=== PATIENT | male | born 2000 | race Caucasian/White ===

== ENCOUNTER 2022-02-14 17:01 | Emergency (ER) | payer OTHER, SELFPAY ==
--- NOTE | 2022-02-14 17:03 | ECG_ITS ---
Measurements Intervals [place] Rate: 102 P: 56 [place]: 139 QRS: 8 QRSD: 88 T: -2 QT: 330 QTc: 432 Interpretive Statements SINUS TACHYCARDIA BORDERLINE T WAVE ABNORMALITY- INFERIOR LEADS BASELINE ARTIFACT- III, V1 BORDERLINE ECG NO PREVIOUS ECG AVAILABLE FOR COMPARISON Electronically Signed On 02-14-2022 22:56:40 BRAKE MACHINE OPERATOR by Sin Worley D.O.
[2022-02-14 17:10] VITALS: BP 165/79; PULSE 90; RESP 18; TEMP 36.9; O2SAT 100
--- NOTE | 2022-02-14 17:50 | PC.NURSE ---
pt was started on lexapro on 01/25. took it for 2 days then stopped due to feeling out of it . pt also admits he smokes alot of weed. pt also states that he quit taking adderall over break and has since restarted. pt c/o feeling anxious, having high heartrate. did go home and smoke weed after his therapy appointment today.
[2022-02-14] MEDS: LORazepam (*CRX) 0.5 MG TABLET PO (18:23)
--- NOTE | 2022-02-14 18:38 | ED.RECABL ---
HPI - Recheck/Abnormal Lab/Rx General Chief Complaint: Recheck/Abnormal Lab/Rx Stated Complaint: high heart rate Time Seen by Provider: 02/14/22 17:45 History of Present Illness HPI narrative: 21-year-old history of anxiety depression and ADHD presents to the emergency room for evaluation of chest pain, anxiety disassociative symptoms . Patient states that he has been on Lexapro since July to manage his anxiety. Patient states that he has increase his dose incrementally since. Patient states 3 weeks ago he was started on Wellbutrin, and he began experiencing confusion and mental fog. Was told at that time that he was probably experiencing a mild serotonin syndrome. Patient states he took the Wellbutrin for 2 days and then discontinued it. Patient also takes Adderall for his ADHD. Since taking the Wellbutrin, patient has been experiencing multiple panic attacks and was referred here from [facility] for further evaluation. Patient states today he began experiencing some chest discomfort and a heart rate in the 100s. Patient was concerned that he may be having a heart attack. Related Data Allergies Allergy/AdvReac Type Severity Reaction Status Date / Time No Known Allergies Allergy Verified 02/14/22 18:22 Review of Systems Review of Systems: CONSTITUTIONAL: Denies fever, chills, or sweats. EYES: Denies visual changes, redness, or discharge. ENT: Denies rhinorrhea, congestion, sore throat, or otalgia. CARDIOVASCULAR: Reports chest pain RESPIRATORY: Denies cough or dyspnea. GASTROINTESTINAL: Denies abdominal pain, nausea, vomiting, or diarrhea. GENITOURINARY: Denies dysuria or hematuria. SKIN: Denies rash or itching. MUSCULOSKELETAL: Denies back pain, joint pain, or myalgia. NEUROLOGIC: Denies headache, numbness, dizziness, or weakness. PSYCHIATRIC: Reports anxiety Exam Narrative: GENERAL: Well-appearing, well-nourished, no physical limitations, and in no acute distress. HEAD: Normocephalic, atraumatic. EYES: Conjunctivae normal, PERRLA and EOMI. CHEST: Clear to auscultation. No respiratory distress. No wheezes rales or rhonchi. No tenderness. HEART: Tachycardic and regular rhythm. No murmur heard. Normal peripheral pulses. ABDOMEN: Soft, nontender, nondistended, normal active bowel sounds. EXTREMITIES: Normal range of motion. No edema. No clubbing or cyanosis SKIN: Warm, dry, no rash. No noted wounds NEURO: No focal deficits. Alert and oriented x3. MAEW. CN's II-XI intact bilaterally, normal gait PSYCH: Cooperative. Anxious. Tangential. Unable to stay on topic Course Vital Signs Vital signs: Vital Signs Temperature 36.9 C 02/14/22 17:10 Pulse Rate 90 02/14/22 17:10 Respiratory Rate 18 02/14/22 17:10 Blood Pressure 165/79 H 02/14/22 17:10 Pulse Oximetry 100 02/14/22 17:10 Temperature 36.9 C 02/14/22 17:10 Pulse Rate 94 02/14/22 19:52 Respiratory Rate 18 02/14/22 19:52 Blood Pressure 146/92 H 02/14/22 19:52 Pulse Oximetry 97 02/14/22 19:52 MDM - Recheck/Abnormal Lab/Rx Lab Data Labs: Lab Results 02/14/22 Range/Units 18:27 Troponin I < 0.012 (0.000-0.034) ng/mL TSH 1.520 (0.465-4.680) uIU/mL Discharge Plan Discharge Clinical Impression: Anxiety Patient Disposition: Home, Self-Care Condition: Stable Instructions: Antibiotic Form, Anxiety (ED) Prescriptions: New lorazepam [Ativan] 1 mg tablet 1 mg PO BID PRN (Reason: anxiety) Qty: 30 0RF Follow-up/Referrals: PHYSICIAN NOT ON STAFF,NONSTAFF [Primary Care Provider] - Time of Disposition: 19:43
[2022-02-14 19:04] LABS: Troponin I < 0.012 ng/mL (0.000-0.034)
[2022-02-14 19:52] VITALS: BP 146/92; PULSE 94; RESP 18; O2SAT 97
== END 2022-02-14 19:54 | disposition home or self-care (01) ==
PROVIDERS: Emergency Provider Nurse Practitioner Family
DX: F41.9 Anxiety disorder, unspecified (principal); F32.A Depression, unspecified; F90.9 Attention-deficit hyperactivity disorder, unspecified type; R00.0 Tachycardia, unspecified; R94.31 Abnormal electrocardiogram [ECG] [EKG]
CPT/HCPCS: 36415; 84443; 84484; 93005; 99284; A9270

== ENCOUNTER 2022-02-23 13:16 | Emergency (ER) | payer OTHER, SELFPAY ==
[2022-02-23 13:43] VITALS: BP 144/90; PULSE 130; RESP 16; TEMP 36.4; O2SAT 98
[2022-02-23] MEDS: SODIUM CHLORIDE 0.9% IV 1,000 ML 999 ML IV CONT (16:06)
--- NOTE | 2022-02-23 16:18 | ED.GENADULT ---
HPI - General Adult General Chief complaint: Weakness Stated complaint: fatigue when walking Time Seen by Provider: 02/23/22 13:31 History of Present Illness HPI narrative: 21-year-old male presents to the emergency room for evaluation of a intermittent tachycardia over the past couple of weeks. Patient was seen here last week diagnosed with anxiety, was given a prescription for Ativan. Patient states that his anxiety and tachycardia were mostly resolved while taking the Ativan. States that over the weekend began experiencing some upper respiratory symptoms so he went to [facility] and was told to discontinue the Ativan and to start propranolol. Patient is also been complaining of nausea and has been unable to take the propranolol today. Related Data Home Medications Medication Instructions Recorded Confirmed escitalopram oxalate 20 mg tablet mg 02/23/22 02/23/22 Allergies Allergy/AdvReac Type Severity Reaction Status Date / Time No Known Allergies Allergy Verified 02/23/22 14:27 Review of Systems Review of Systems: CONSTITUTIONAL: Reports fatigue EYES: Denies visual changes, redness, or discharge. ENT: Denies rhinorrhea, congestion, sore throat, or otalgia. CARDIOVASCULAR: Reports palpitations, tachycardia RESPIRATORY: Denies cough or dyspnea. GASTROINTESTINAL: Denies abdominal pain, nausea, vomiting, or diarrhea. GENITOURINARY: Denies dysuria or hematuria. SKIN: Denies rash or itching. MUSCULOSKELETAL: Denies back pain, joint pain, or myalgia. NEUROLOGIC: Reports headache PSYCHIATRIC: Denies anxiety or depression. Exam Narrative: GENERAL: Well-appearing, well-nourished, no physical limitations, and in no acute distress. HEAD: Normocephalic, atraumatic. EYES: Conjunctivae normal, PERRLA and EOMI. swelling of upper eyelids bilaterally NECK: Supple. No meningeal signs. No adenopathy or masses. No carotid bruits or JVD CHEST: Clear to auscultation. No respiratory distress. No wheezes rales or rhonchi. No tenderness. HEART: Tachycardia with regular rhythm. No murmur heard. Normal peripheral pulses. ABDOMEN: Soft, nontender, nondistended, normal active bowel sounds. EXTREMITIES: Normal range of motion. No edema. No clubbing or cyanosis SKIN: Warm, dry, no rash. No noted wounds NEURO: No focal deficits. Alert and oriented x3. MAEW. CN's II-XI intact bilaterally, normal gait PSYCH: Cooperative. Normal mood and affect. Course Vital Signs Vital signs: Vital Signs Temperature 36.4 C L 02/23/22 13:43 Pulse Rate 130 H 02/23/22 13:43 Respiratory Rate 16 02/23/22 13:43 Blood Pressure 144/90 H 02/23/22 13:43 Pulse Oximetry 98 02/23/22 13:43 Oxygen Delivery Room Air 02/23/22 13:43 Temperature 36.4 C L 02/23/22 13:43 Pulse Rate 90 02/23/22 16:24 Respiratory Rate 16 02/23/22 13:43 Blood Pressure 144/90 H 02/23/22 13:43 Pulse Oximetry 98 02/23/22 13:43 Oxygen Delivery Room Air 02/23/22 13:43 Medical Decision Making Vital Signs Vital Signs: Vital Signs Temperature 36.4 C L 02/23/22 13:43 Pulse Rate 130 H 02/23/22 13:43 Respiratory Rate 16 02/23/22 13:43 Blood Pressure 144/90 H 02/23/22 13:43 Pulse Oximetry 98 02/23/22 13:43 Oxygen Delivery Room Air 02/23/22 13:43 Temperature 36.4 C L 02/23/22 13:43 Pulse Rate 90 02/23/22 16:24 Respiratory Rate 16 02/23/22 13:43 Blood Pressure 144/90 H 02/23/22 13:43 Pulse Oximetry 98 02/23/22 13:43 Oxygen Delivery Room Air 02/23/22 13:43 Lab Data 02/23/22 16:55 02/23/22 16:55 Labs: Lab Results 02/23/22 02/23/22 02/23/22 Range/Units 16:46 16:55 16:55 WBC 10.3 H (4.5-10.0) K/mm3 RBC 6.01 (4.6-6.20) M/mm3 Hgb 16.6 (14.0-18.0) g/dL Hct 53.2 H (42.0-52.0) % MCV 88.5 (80-100) fl MCH 27.6 (26-34) pg MCHC 31.2 L (32-36) g/dl RDW 15.5 H (11.5-14.5) % Plt Count 244 (150-375) k/mm3 MPV 9.0 (7.4-10.4) fl Im
[2022-02-23 16:24] VITALS: PULSE 90
[2022-02-23] MEDS: PROPRANOLOL HCL 20 MG TABLET PO (16:24)
[2022-02-23 17:04] LABS: Basophils Absolute Auto 0.1 K/mm3 (0.0-0.1); Basophils Percent Auto 0.8 % (0.2-1.2); Eosinophils Absolute Auto 0.3 K/mm3 (0-0.3); Hematocrit 53.2 % (42.0-52.0); Hemoglobin 16.6 g/dL (14.0-18.0); Lymphocytes Absolute Auto 2.35 K/mm3 (0.9-3.2); Lymphocytes Percent Auto 22.7 % (18.3-44.2); Mean Corpuscular HGB Conc 31.2 g/dl (32-36); Mean Corpuscular Hemoglobin 27.6 pg (26-34); Mean Corpuscular Volume 88.5 fl (80-100); Monocytes Absolute Auto 1.1 K/mm3 (0.1-0.6); Monocytes Percent Auto 10.6 % (2.6-8.5); Neutrophils Absolute Auto 6.4 K/mm3 (1.3-6.7); Neutrophils Percent Auto 61.9 % (45.5-73.1); Platelet Count Result 244 k/mm3 (150-375); Red Blood Count 6.01 M/mm3 (4.6-6.20); Red Cell Distribution Width 15.5 % (11.5-14.5); White Blood Count 10.3 K/mm3 (4.5-10.0)
[2022-02-23 17:21] LABS: Anion Gap 8 mmol/L (8-16); Blood Urea Nitrogen 12 mg/dL (8-21); Calcium 8.2 mg/dL (8.9-10.7); Carbon Dioxide 25 mmol/L (22-30); Chloride 101 mmol/L (98-107); Estimated CRCL calculation 203 ml/min; Estimated Glomerular Filt Rate > 60; Glucose 82 mg/dL (65-110); Potassium 3.9 mmol/L (3.4-5.0); Sodium 134 mmol/L (134-143)
[2022-02-23 17:40] LABS: Influenza A QL RT-PCR Negative (Negative); Influenza B QL RT-PCR Negative (Negative); RSV RNA, RT-PCR Negative (Negative); SARS-CoV-2 RNA PCR Negative
[2022-02-23 18:04] VITALS: PULSE 81; RESP 18; O2SAT 98
== END 2022-02-23 18:14 | disposition home or self-care (01) ==
PROVIDERS: Emergency Provider Nurse Practitioner Family
DX: R00.0 Tachycardia, unspecified (principal); R53.83 Other fatigue; R11.0 Nausea; Z20.822 Contact with and (suspected) exposure to COVID-19; F41.9 Anxiety disorder, unspecified
CPT/HCPCS: 36415; 80048; 85025; 87637; 96360; 99283; A9270; J7030

== ENCOUNTER 2023-04-02 22:36 | Emergency (ER) | payer OTHER, SELFPAY ==
--- NOTE | ~2023-04-02 | XR_ITS ---
EXAMINATION: XR ankle LT min 3V DATE: 04/02/2023 23:17 INDICATION: Left ankle pain TECHNIQUE: Three views of the left ankle are obtained.. COMPARISON: None. FINDINGS: There is an acute, traumatic, closed, oblique fracture of the distal fibula extending to th e level of the tibial plafond. There are 4 mm of lateral subluxation of the talus with respect to the distal tibia. There is widening of the medial tibiotalar space. There is soft tissue swelling of ank le. IMPRESSION: 1. Oblique fracture of the distal fibula with 4 mm of lateral subluxation of the talus with respect t o the distal tibia. Reviewed, dictated and finalized at location F. TE MANAGER IMPRESSION: 1. Oblique fracture of the distal fibula with 4 mm of lateral subluxation of th e talus with respect to the distal tibia.
--- NOTE | ~2023-04-02 | XR_ITS ---
Right foot Technique: AP, oblique, and lateral views were obtained. Clinical History: Pain Findings: No acute fracture or dislocation is seen. Osseous alignment is anatomic. Joint spaces are p reserved without erosive or degenerative change. Soft tissues are unremarkable. Impression: Unremarkable right foot radiographs. Reviewed, dictated and finalized at location . DESIGNER Impression: Unremarkable right foot radiographs.
[2023-04-02 22:39] VITALS: BP 144/92; PULSE 114; RESP 20; TEMP 36.7; O2SAT 98
[2023-04-02 23:42] VITALS: BP 154/76; PULSE 90; RESP 18; TEMP 36.4; O2SAT 98
[2023-04-03] MEDS: KETOROLAC (*BKC) 60 MG/2 ML VIAL IM (00:07)
[2023-04-03] MEDS: HYDROcodone/acetaminophen (*CRX) 5-325 MG TABLET 1 TAB PO (00:07)
--- NOTE | 2023-04-03 00:23 | ED.LOWEXIN ---
HPI - Extremity Injury (Lower) General Chief Complaint: Extremity Injury, Lower Stated Complaint: injured LEFT ankle Time Seen by Provider: 04/02/23 23:45 Source: patient Mode of arrival: ambulatory Limitations: no limitations History of Present Illness HPI Narrative: Patient is a 22 y/o male who presents to the ED with c/o left ankle pain. Patient reports he was walking to his laundry today when he slipped on ice carrying his laundry basket. He rolled his left ankle in the process. He complains of pain to his left lateral ankle. Difficulty ambulating due to the pain. Denies any other injuries. Denies head injury or LOC. Denies knee pain. No significant numbness. He has not taken anything for pain prior to arrival. Related Data Home Medications Medication Instructions Recorded Confirmed escitalopram oxalate 20 mg tablet mg 02/23/22 02/23/22 Allergies Allergy/AdvReac Type Severity Reaction Status Date / Time No Known Allergies Allergy Verified 02/23/22 14:27 Review of Systems Review of Systems: CONSTITUTIONAL: Denies fever, chills, or sweats. MUSCULOSKELETAL: See HPI. NEUROLOGIC: Denies headache, dizziness, numbness, or weakness. All systems reviewed & are unremarkable except as noted in HPI and below Exam Narrative: GENERAL: Well appearing, morbidly obese with BMI of 43.0, non-toxic, in no acute distress. HEAD: Normocephalic, atraumatic. RESPIRATORY: Airway patent, respirations nonlabored. CARDIOVASCULAR: Regular rate and rhythm. Pedal pulses 2+ MUSCULOSKELETAL: Limited range of motion of left ankle due to pain. Moderate swelling to lateral malleolus with diffuse tenderness. Mild tenderness over dorsal midfoot. Sensation intact. Capillary refill intact. No pain throughout left knee or more proximal lower leg. SKIN: Warm, dry, normal color. NEURO: A&O X3. Speech clear. Cranial nerves II-XII grossly intact. No ataxic movements. PSYCHIATRIC: Appropriate mood and affect. Normal interaction. Course Vital Signs Vital signs: Vital Signs Temperature 98.0 F 04/02/23 22:39 Pulse Rate 114 H 04/02/23 22:39 Respiratory Rate 20 04/02/23 22:39 Blood Pressure 144/92 H 04/02/23 22:39 Pulse Oximetry 98 04/02/23 22:39 Oxygen Delivery Room Air 04/02/23 22:39 Temperature 97.6 F 04/02/23 23:42 Pulse Rate 90 04/02/23 23:42 Respiratory Rate 18 04/02/23 23:42 Blood Pressure 154/76 H 04/02/23 23:42 Pulse Oximetry 98 04/02/23 23:42 Oxygen Delivery Room Air 04/02/23 22:39 MDM - Extremity Injury (Lower) MDM Narrative Medical decision making narrative: Patient's injury is consistent with musculoskeletal etiology. No signs of neurologic or vascular compromise on physical examination. Compartments are soft without signs of compartment syndrome. XR left ankle showing distal fibular fracture with lateral subluxation of the talus. No dislocation. Patient did also have some tenderness throughout his mid foot. X-ray of left foot interpreted by myself without any additional fractures. Pain is consistent with exam and injury. Patient placed in a short-leg posterior splint. Patient is originally from [facility] and plans to follow-up with an clinical specialist medical device there. Advised to wear splint and utilize crutches until seen by Orthopedics, pain medication sent to pharmacy. Patient given return precautions. D/C stable condition. Medical Records Attestation: I reviewed the patient's medical records. Imaging Data Attestation: I personally reviewed and interpreted this imaging study as follows: My impression: XR L foot: No acute osseous abnormality. Radiologist's impression: ITS Impressions Ankle X-Ray 04/02/23 23:23 IMPRESSION: 1. Oblique fracture of the distal fibula with 4 mm of lateral subluxation of the talus with respect to the distal tibia. Discharge Plan Discharge Clinical Impression: Fracture of distal end of left fibula, Fall
[2023-04-03 01:13] VITALS: BP 154/72; PULSE 75; RESP 16; TEMP 36.8; O2SAT 99
== END 2023-04-03 01:14 | disposition home or self-care (01) ==
LOC: ANHED 04-03 00:45
PROVIDERS: Emergency Provider Physician Assistant
DX: S82.832A Other fracture of upper and lower end of left fibula, initial encounter for closed fracture (principal); X50.9XXA Other and unspecified overexertion or strenuous movements or postures, initial encounter
CPT/HCPCS: 29515; 73610; 73630; 96372; 99284; A9270; J1885

== ENCOUNTER → 2023-06-02 15:18 | Emergency (ER) | payer OTHER, SELFPAY | END | disposition left against medical advice (07) | LOC: ANHED 15:52 | DX: Z53.21 Procedure and treatment not carried out due to patient leaving prior to being seen by health care provider (principal) | CPT/HCPCS: 99199 ==

== ENCOUNTER 2023-06-03 18:37 | Emergency (ER) | payer OTHER, SELFPAY ==
[2023-06-03] VITALS (7 sets, daily range): BP systolic 103–158; BP diastolic 73–108; PULSE 72–98; RESP 20–24; TEMP 36.8; O2SAT 99–100
--- NOTE | ~2023-06-03 | CT_ITS ---
EXAMINATION: CT brain wo con DATE: 06/03/2023 20:16 INDICATION: dizziness . TECHNIQUE: Computed tomography (CT) of the head was performed without intravenous contrast. The mA wa s adjusted according to patient size. Iterative reconstruction technique was employed. The dose-lengt h product was 681.00 mGy-cm. COMPARISON: None. FINDINGS: No acute intracranial hemorrhage or extra-axial fluid collection. No hydrocephalus, mass, or herniation. No acute ischemic infarct. Unremarkable dural venous sinus attenuation. No acute osseous abnormality. The aerated spaces are clear. IMPRESSION: No acute intracranial process. Reviewed, dictated and finalized at location K.
--- NOTE | ~2023-06-03 | XR_ITS ---
EXAMINATION: XR chest 1V portable Exam Date/Time: 06/03/2023 19:40 CDT HISTORY: near syncope Comparison: None. RESULT: Lines, tubes, and devices: None. Lungs and pleura: Clear. Cardiomediastinal silhouette: Normal. Other: No acute osseous or upper abdominal finding. IMPRESSION: No acute cardiopulmonary process. Reviewed, dictated and finalized at location K.
--- NOTE | 2023-06-03 18:42 | ECG_ITS ---
Measurements Intervals [place] Rate: 83 P: 26 [place]: 136 QRS: 3 QRSD: 96 T: 9 QT: 350 QTc: 412 Interpretive Statements SINUS RHYTHM VOLTAGE CRITERIA FOR LVH BASELINE WANDER- II, III, AVF, V1-V2, V4-V6 BORDERLINE ECG COMPARED TO ECG 02/14/2022 17:06:48 SINUS RHYTHM NOW PRESENT LEFT VENTRICULAR HYPERTROPHY NOW PRESENT Electronically Signed On 06-04-2023 9:02:08 CDT by Sin Worley D.O.
--- NOTE | 2023-06-03 19:31 | ED.GENADULT ---
HPI - General Adult General Chief complaint: Dizziness Stated complaint: light headed, dizziness, panic attack Time Seen by Provider: 06/03/23 19:01 History of Present Illness HPI narrative: Patient is a 22-year-old gentleman who presents emergency department with chief complaint of lightheadedness feeling like he is going to pass out and tingling over his body. The patient reports he has tingling in his hands lips and feet patient states that he does have history of anxiety and has been seeing his primary care provider patient states he has had several episodes recent felt as though he was going to pass out but has not actually passed out Related Data Home Medications Medication Instructions Recorded Confirmed escitalopram oxalate 20 mg tablet mg 02/23/22 02/23/22 Allergies Allergy/AdvReac Type Severity Reaction Status Date / Time No Known Allergies Allergy Verified 02/23/22 14:27 Review of Systems Review of Systems: A 10 system review of systems was completed on the patient and is negative except for what is stated in the HPI. Nursing and ancillary documentation was reviewed. Exam Narrative: GENERAL: Well-appearing, well-nourished, and in no acute distress. HEAD: Normocephalic, atraumatic. EYES: PERRLA and EOMI. ENT: Nares clear, no rhinorrhea or epistaxis. Mucous membranes moist. NECK: Supple. CHEST: Clear to auscultation. No respiratory distress. HEART: Regular rate and rhythm. No murmur heard. Normal peripheral pulses. ABDOMEN: Soft, nontender, nondistended, normal active bowel sounds. EXTREMITIES: Normal range of motion. No edema. SKIN: Warm, dry, no rash. NEURO: No focal deficits. Alert and oriented x3. PSYCH: Normal mood and affect. Course Vital Signs Vital signs: Vital Signs Temperature 36.8 C 06/03/23 18:44 Pulse Rate 98 06/03/23 18:44 Respiratory Rate 20 06/03/23 18:44 Blood Pressure 158/100 H 06/03/23 18:44 Pulse Oximetry 100 06/03/23 18:44 Temperature 36.8 C 06/03/23 18:44 Pulse Rate 72 06/03/23 21:34 Respiratory Rate 24 H 06/03/23 21:34 Blood Pressure 148/79 H 06/03/23 21:34 Pulse Oximetry 99 06/03/23 21:34 Medical Decision Making MDM Narrative Medical decision making narrative: Differential diagnosis includes electrolyte abnormality, anxiety, dysrhythmia anemia, infection EKG showed no acute ischemic changes and no dysrhythmia Laboratory studies were obtained on the patient showed a white count of 10.3 electrolytes showed a CO2 of 17 creatinine 0.6 troponin is less than 0.012 magnesium was 1.[address] showed no acute abnormalities Chest x-ray showed no acute findings EKG showed no acute ischemic changes Patient was given supplemental magnesium in the emergency department Vital Signs Vital Signs: Vital Signs Temperature 36.8 C 06/03/23 18:44 Pulse Rate 98 06/03/23 18:44 Respiratory Rate 20 06/03/23 18:44 Blood Pressure 158/100 H 06/03/23 18:44 Pulse Oximetry 100 06/03/23 18:44 Temperature 36.8 C 06/03/23 18:44 Pulse Rate 72 06/03/23 21:34 Respiratory Rate 24 H 06/03/23 21:34 Blood Pressure 148/79 H 06/03/23 21:34 Pulse Oximetry 99 06/03/23 21:34 Lab Data 06/03/23 19:19 06/03/23 19:19 Labs: Lab Results 06/03/23 06/03/23 Range/Units 19:19 19:36 WBC 10.3 H (4.5-10.0) K/mm3 RBC 5.42 (4.6-6.20) M/mm3 Hgb 15.0 (14.0-18.0) g/dL Hct 47.5 (42.0-52.0) % MCV 87.6 (80-100) fl MCH 27.7 (26-34) pg MCHC 31.6 L (32-36) g/dl RDW 13.6 (11.5-14.5) % Plt Count 304 (150-375) k/mm3 MPV 9.4 (7.4-10.4) fl Immature Gran % (Auto) 0.3 (0-0.5) % Neut % (Auto) 66.9 (45.5-73.1) % Lymph % (Auto) 22.3 (18.3-44.2) % [place] % (Auto) 8.5 (2.6-8.5) % Eos % (Auto) 1.1 (0-4.4) % Baso % (Auto) 0.9 (0.2-1.2) % Lymph # (Auto) 2.30 (0.9-3.2) K/mm3 [place] # (Auto) 0.9 H (0.1-0.6) K/mm3 Eos # (Auto) 0.1 (
[2023-06-03 19:35] LABS: Basophils Absolute Auto 0.1 K/mm3 (0.0-0.1); Basophils Percent Auto 0.9 % (0.2-1.2); Eosinophils Absolute Auto 0.1 K/mm3 (0-0.3); Eosinophils Percent Auto 1.1 % (0-4.4); Hematocrit 47.5 % (42.0-52.0); Immature Granulocyte Absolute 0.03 K/mm3 (0.00-0.031); Immature Granulocyte Percent A 0.3 % (0-0.5); Lymphocytes Percent Auto 22.3 % (18.3-44.2); Mean Corpuscular HGB Conc 31.6 g/dl (32-36); Mean Corpuscular Hemoglobin 27.7 pg (26-34); Mean Corpuscular Volume 87.6 fl (80-100); Mean Platelet Volume 9.4 fl (7.4-10.4); Monocytes Absolute Auto 0.9 K/mm3 (0.1-0.6); Monocytes Percent Auto 8.5 % (2.6-8.5); Neutrophils Absolute Auto 6.9 K/mm3 (1.3-6.7); Neutrophils Percent Auto 66.9 % (45.5-73.1); Platelet Count Result 304 k/mm3 (150-375); Red Blood Count 5.42 M/mm3 (4.6-6.20); Red Cell Distribution Width 13.6 % (11.5-14.5); White Blood Count 10.3 K/mm3 (4.5-10.0)
[2023-06-03] MEDS: SODIUM CHLORIDE 0.9% IV 1,000 ML 999 ML IV CONT (19:37)
[2023-06-03 19:53] LABS: Alanine Aminotransferase 37 U/L (6-50); Albumin Level 4.8 g/dL (3.5-5.1); Alkaline Phosphatase 115 U/L (38-126); Anion Gap 13 mmol/L (8-16); Aspartate Amino Transferase 32 U/L (17-59); Bilirubin,Total 0.5 mg/dL (0.2-1.3); Blood Urea Nitrogen 9 mg/dL (9-20); Calcium 10.2 mg/dL (8.4-10.2); Carbon Dioxide 17 mmol/L (22-30); Chloride 110 mmol/L (98-107); Estimated CRCL calculation 245 ml/min; Estimated Glomerular Filt Rate > 60; Glucose 95 mg/dL (65-110); Potassium 3.4 mmol/L (3.4-5.0); Sodium 140 mmol/L (137-145)
[2023-06-03 19:56] LABS: Magnesium 1.8 mg/dL (1.6-2.3)
[2023-06-03 20:09] LABS: Troponin I < 0.012 ng/mL (0.000-0.034)
[2023-06-03] MEDS: MAGNESIUM SULF 1 GM/D5W 100 ML 1 GM/100 ML BAG IVPB (20:35)
== END 2023-06-03 22:00 | disposition home or self-care (01) ==
PROVIDERS: Student in an Organized Health Care Education/Training Program; Emergency Provider Emergency Medicine
DX: R42 Dizziness and giddiness (principal); F41.9 Anxiety disorder, unspecified; R94.31 Abnormal electrocardiogram [ECG] [EKG]
CPT/HCPCS: 36415; 70450; 71045; 80053; 83735; 84484; 85025; 93005; 96361; 96365; 99284; J3475; J7030

== ENCOUNTER 2023-06-05 16:57 | Emergency (ER) | payer OTHER, SELFPAY ==
[2023-06-05] VITALS (24 sets, daily range): BP systolic 139–165; BP diastolic 74–113; PULSE 70–108; RESP 13–25; TEMP 36.6; O2SAT 96–100
--- NOTE | 2023-06-05 19:20 | ECG_ITS ---
Measurements Intervals [place] Rate: 77 P: 23 [place]: 148 QRS: 7 QRSD: 93 T: 8 QT: 359 QTc: 409 Interpretive Statements SINUS RHYTHM WITH SINUS ARRHYTHMIA VOLTAGE CRITERIA FOR LVH BASELINE ARTIFACT- I, III, AVL, V1-V2 BORDERLINE ECG COMPARED TO ECG 06/03/2023 19:00:17 SINUS ARRHYTHMIA NOW PRESENT Electronically Signed On 06-06-2023 6:24:05 CDT by Sin Worley D.O.
[2023-06-05] MEDS: SODIUM CHLORIDE 0.9% IV 1,000 ML 999 ML IV CONT ×2 (19:52→21:02)
[2023-06-05 20:03] LABS: Basophils Absolute Auto 0.1 K/mm3 (0.0-0.1); Basophils Percent Auto 0.8 % (0.2-1.2); Eosinophils Absolute Auto 0.1 K/mm3 (0-0.3); Eosinophils Percent Auto 1.1 % (0-4.4); Hematocrit 46.7 % (42.0-52.0); Hemoglobin 15.2 g/dL (14.0-18.0); Immature Granulocyte Absolute 0.03 K/mm3 (0.00-0.031); Immature Granulocyte Percent A 0.3 % (0-0.5); Lymphocytes Absolute Auto 2.19 K/mm3 (0.9-3.2); Lymphocytes Percent Auto 23.8 % (18.3-44.2); Mean Corpuscular HGB Conc 32.5 g/dl (32-36); Mean Corpuscular Hemoglobin 27.5 pg (26-34); Mean Corpuscular Volume 84.6 fl (80-100); Mean Platelet Volume 9.5 fl (7.4-10.4); Monocytes Absolute Auto 0.8 K/mm3 (0.1-0.6); Monocytes Percent Auto 9.1 % (2.6-8.5); Neutrophils Percent Auto 64.9 % (45.5-73.1); Platelet Count Result 326 k/mm3 (150-375); Red Blood Count 5.52 M/mm3 (4.6-6.20); Red Cell Distribution Width 13.6 % (11.5-14.5); White Blood Count 9.2 K/mm3 (4.5-10.0)
[2023-06-05 20:23] LABS: Alanine Aminotransferase 43 U/L (6-50); Alkaline Phosphatase 122 U/L (38-126); Anion Gap 14 mmol/L (8-16); Aspartate Amino Transferase 41 U/L (17-59); Bilirubin,Total 0.4 mg/dL (0.2-1.3); Blood Urea Nitrogen 11 mg/dL (9-20); Carbon Dioxide 23 mmol/L (22-30); Chloride 105 mmol/L (98-107); Estimated CRCL calculation 213 ml/min; Estimated Glomerular Filt Rate > 60; Glucose 93 mg/dL (65-110); Potassium 3.6 mmol/L (3.4-5.0); Sodium 142 mmol/L (137-145)
[2023-06-05 20:33] LABS: Troponin I < 0.012 ng/mL (0.000-0.034)
--- NOTE | 2023-06-05 20:52 | ED.DIZZY ---
HPI - Dizziness General Chief Complaint: Dizziness Stated Complaint: dizziness Time Seen by Provider: 06/05/23 19:19 History of Present Illness HPI Narrative: Patient is a 22-year-old male with history of anxiety, ADHD presenting with lightheadedness. States that for the last week or 2 he has been experiencing lightheadedness especially with positional changes. 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 He was seen here a few days ago and everything looked fine so he was able to go home. He again had an episode of lightheadedness today so [facility] who advised that he come to the ER. States that he has been having body aches and joint pains but no chest pain or shortness of breath. No leg swelling. Reports decreased appetite but no nausea or vomiting. No diarrhea. States that he has been urinating less frequently than normal despite a normal fluid intake. He plans to go home to see his PCP later this week. Related Data Home Medications Medication Instructions Recorded Confirmed escitalopram oxalate 20 mg tablet mg 02/23/22 02/23/22 Allergies Allergy/AdvReac Type Severity Reaction Status Date / Time No Known Allergies Allergy Verified 02/23/22 14:27 Review of Systems Review of Systems: All systems reviewed & are unremarkable except as noted in HPI and below Exam Narrative: GENERAL: Nontoxic, no acute distress, pleasant cooperative HEAD: Normocephalic, atraumatic. EYES: PERRLA and EOMI. ENT: Mucous membranes moist. NECK: Supple. CHEST: Clear to auscultation. No respiratory distress. HEART: Regular rate and rhythm. ABDOMEN: Soft, nontender, nondistended EXTREMITIES: Normal range of motion. + ortho boot left lower extremity SKIN: Warm, dry, no rash. NEURO: No focal deficits. Alert and oriented x3. PSYCH: Normal mood and affect. Course Vital Signs Vital signs: Vital Signs Temperature 98 F 06/05/23 17:04 Pulse Rate 108 H 06/05/23 17:04 Respiratory Rate 16 06/05/23 17:04 Blood Pressure 157/75 H 06/05/23 17:04 Pulse Oximetry 99 06/05/23 17:04 Oxygen Delivery Room Air 06/05/23 17:04 Temperature 98 F 06/05/23 17:04 Pulse Rate 85 06/05/23 22:46 Respiratory Rate 20 06/05/23 22:46 Blood Pressure 151/84 H 06/05/23 22:31 Pulse Oximetry 100 06/05/23 22:46 Oxygen Delivery Room Air 06/05/23 17:04 MDM - Dizziness MDM Narrative Medical decision making narrative: 22-year-old male presenting with lightheadedness. Vitals are stable. Exam remarkable for the above. EKG per my interpretation shows normal sinus rhythm, no acute ischemic changes. Blood work is unremarkable. Normal electrolytes and renal function. Troponin is undetectable. CK is normal. mono is negative. UA is unremarkable. Orthostatic vitals are normal. Patient received fluids and states that he feels fine. Gonorrhea and chlamydia are pending, advised that he would receive a call if these return positive. Patient is going to follow up with his PCP in a couple of days. Strict return precautions given. Discharged in stable condition. Differential Diagnosis Differential diagnosis: Likely orthostatic hypotension and other ( Vasovagal syncope, dehydration, ALESSANDRO, UTI) Medical Records Attestation: I reviewed the patient's medical records. Lab Data Attestation: I reviewed the patient's lab results. 06/05/23 19:50 06/05/23 19:50 Labs: Lab Results 06/05/23 06/05/23 06/05/23 Range/Units 18:50 19:50 21:02 WBC 9.2 (4.5-10.0) K/mm3 RBC 5.52 (4.6-6.20) M/mm3 Hgb 15.2 (14.0-18.0) g/dL Hct 46.7 (42.0-52.0) % MCV 84.6 (80-100) fl MCH 27.5 (26-34) pg MCHC 32.5 (32-36) g/dl RDW 13.6 (11.5-14.5) % Plt Count 326 (150-375) k/mm3 MPV 9.5 (7.4-10.4) fl Immature Gran % (Auto) 0.3 (0-0.5) % Neut % (Auto) 64.9 (45.5-73.1) %
[2023-06-05 21:09] LABS: Creatine Kinase 81 U/L (55-170)
[2023-06-05 21:20] LABS: Monoscreen Negative (Negative); Negative Monotest Control Negative (Negative); Positive Monotest Control Positive (Positive)
[2023-06-05 22:25] LABS: Appearance Urine Cloudy (Clear); Bacteria Urine None Seen /hpf; Bilirubin Urine Negative (Negative); Blood Urine Negative (Negative); Color Urine Yellow (Yellow); Glucose Urine UA Negative (Negative); Ketones Urine 2+ mg/dL (Negative); Leukocyte Esterase Ur Negative LEU/UL (Negative); Nitrate Urine Negative (Negative); Non Pathogenic Casts 0-2; Protein Urine Negative (Negative); RBC Urine 0-2 /hpf (0-2); Specific Grav Ur 1.029 (1.001-1.035); Squamous Epithelial Cell Urine None Seen /hpf (Few); WBC Urine 0-5 /hpf (0-3)
[2023-06-05 22:28] LABS: Add Urine Microscopic? YES
[2023-06-05 23:50] LABS: Chlamydia trachomatis NOT DETECTED (NOT DETECTE); Neisseria gonorrhoeae PCR NOT DETECTED (NOT DETECTE)
== END 2023-06-05 23:35 | disposition home or self-care (01) ==
PROVIDERS: Emergency Provider Emergency Medicine
DX: R42 Dizziness and giddiness (principal); M25.50 Pain in unspecified joint; F41.9 Anxiety disorder, unspecified; F90.9 Attention-deficit hyperactivity disorder, unspecified type
CPT/HCPCS: 36415; 80053; 82550; 83735; 84484; 85025; 86308; 87491; 87591; 93005; 96360; 96361; 99284; J7030

== ENCOUNTER 2023-06-15 18:50 | Emergency (ER) | payer OTHER, SELFPAY ==
--- NOTE | ~2023-06-15 | US_ITS ---
EXAMINATION: US scrotum doppler DATE: 06/15/2023 21:16 INDICATION: c/f torsion; R testicular pain during intercourse . TECHNIQUE: Grayscale and Doppler ultrasound images of the testes were obtained. COMPARISON: None. FINDINGS: The right testis measures 3.2 x 4.2 x 2.4 cm. The left testis measures 2.9 x 4.1 x 2.5 cm. No testicular mass. There is normal vascular flow to both testes. The right epididymis is normal with normal vascular flow. The left epididymis is normal with normal vascular flow. There is no varicocel e or hydrocele. IMPRESSION: Normal scrotal ultrasound findings. Reviewed, dictated and finalized at location [facility].
[2023-06-15 19:14] VITALS: BP 120/105; PULSE 78; RESP 20; TEMP 36.4; O2SAT 97
--- NOTE | 2023-06-15 20:48 | ED.MALEGU ---
HPI - Male Genitourinary General Chief complaint: Urogenital-Male Stated complaint: testicular pain Time Seen by Provider: 06/15/23 20:41 Source: patient and family (Mother) Mode of arrival: ambulatory Limitations: no limitations History of Present Illness HPI Narrative: 22-year-old male presents with concern for acute onset right testicular pain he experienced well having unprotected sexual intercourse last night. He continues to experience this pain intermittently throughout the day and has been taking Tylenol ibuprofen. The pain radiates into his abdomen and has been causing him to be nauseated. He denies any penile discharge or penile pain. He does note that he had sexually transmitted infection testing performed when he was seen in the emergency department previously and had been told that he did not receive a call he tested negative. He did not receive a call but would like to know the results of this testing if possible. No new partners since that testing; the partner he was engaging in intercourse last night with was the same. Related Data Home Medications Medication Instructions Recorded Confirmed escitalopram oxalate 20 mg tablet mg 02/23/22 02/23/22 Allergies Allergy/AdvReac Type Severity Reaction Status Date / Time No Known Allergies Allergy Verified 06/15/23 18:51 Exam Narrative: GENERAL: Well-appearing, well-nourished, and in no acute distress. HEAD: Normocephalic, atraumatic. EYES: Non injected, non icteric ENT: Nares clear, no rhinorrhea or epistaxis. NECK: Supple. CHEST: Speaking in full sentences No respiratory distress. HEART: Regular rate and rhythm. . : Normal uncircumcised male genitalia. No penile discharge at the urethral meatus. Right testis does appear to lie superiorly but otherwise no TTP of either teste or of the scrotum. No ecchymosis. ABDOMEN: Obese but Soft, nondistended. EXTREMITIES: Normal range of motion. No edema. SKIN: Warm, dry, no rash. NEURO: No focal deficits. Alert and oriented x3. PSYCH: Normal mood and affect. Course Vital Signs Vital signs: Vital Signs Temperature 97.5 F L 06/15/23 19:14 Pulse Rate 78 06/15/23 19:14 Respiratory Rate 20 06/15/23 19:14 Blood Pressure 120/105 H 06/15/23 19:14 Pulse Oximetry 97 06/15/23 19:14 Oxygen Delivery Room Air 06/15/23 19:14 Temperature 98.2 F 06/15/23 23:21 Pulse Rate 72 06/15/23 23:21 Respiratory Rate 17 06/15/23 23:21 Blood Pressure 131/76 06/15/23 23:21 Pulse Oximetry 100 06/15/23 23:21 Oxygen Delivery Room Air 06/15/23 19:14 MDM - Male Genitourinary MDM Narrative Medical decision making narrative: This is a 22-year-old male who presents with concern for right testis pain he experienced acutely will having unprotected sexual intercourse last night. He has been taking Tylenol ibuprofen and notes that the pain occurs intermittently. It radiates into his abdomen and is associated with some nausea. No penile discharge. He was tested for sexually transmitted infections at this hospital in the past and states that he has had no new sexual partners since this was the same partner. Did not receive notification of a positive test but would appreciate confirmation that these were indeed negative previously. Scrotal ultarsound negative for torsion and I have low suspicion for this as well. Patient discharged home in stable condition advice and recommendations on supportive care. He is provided the name of a urologist is in need of a referral. Also confirmed negative chlamydia and gonorrhea testing when he had been here previously and this was noted in his discharge paperwork. He had declined further testing today as he states that there have been no new sexual partners. Differential Diagnosis Differential diagnosis: Likely other (Testicular trauma, testicular contusion/bruising, testicular torsion) Discharge Plan Discharge Clinical Impression: Testicular discomfort
[2023-06-15] MEDS: ONDANSETRON HCL ODT 4 MG TABLET PO (20:51)
[2023-06-15 23:21] VITALS: BP 131/76; PULSE 72; RESP 17; TEMP 36.8; O2SAT 100
== END 2023-06-15 23:23 | disposition home or self-care (01) ==
PROVIDERS: Emergency Provider Student in an Organized Health Care Education/Training Program
DX: N50.811 Right testicular pain (principal)
CPT/HCPCS: 76870; 93976; 99284; A9270